=== PATIENT | female | born 1940 | race Two or more races ===

== ENCOUNTER 2017-11-11 09:38 | Outpatient (CLI) | payer OTHER ==
[~2017-11-11 09:38] MED LIST: MILLIPRED DP5 M1 PO; TRAMADOL HCL50 MG PO
== END 2017-11-11 09:46 | disposition home or self-care (01) ==
LOC: SONOGRAMA 09:38
DX: E04.1 Nontoxic single thyroid nodule (principal)

== ENCOUNTER 2018-06-23 09:47 | Outpatient (CLI) | payer OTHER | END 2018-06-23 09:57 | disposition home or self-care (01) | LOC: RAD 09:47 | DX: I11.9 Hypertensive heart disease without heart failure (principal); R06.02 Shortness of breath ==

== ENCOUNTER 2018-09-18 09:42 | Outpatient (CLI) | payer OTHER | END 2018-09-18 09:48 | disposition home or self-care (01) | LOC: MAMO-SONO 09:42 | DX: Z12.31 Encounter for screening mammogram for malignant neoplasm of breast (principal); Z87.898 Personal history of other specified conditions; C50.911 Malignant neoplasm of unspecified site of right female breast; C50.912 Malignant neoplasm of unspecified site of left female breast; N63.10 Unspecified lump in the right breast, unspecified quadrant; N63.20 Unspecified lump in the left breast, unspecified quadrant ==

== ENCOUNTER 2019-01-06 13:59 | Outpatient (CLI) | payer OTHER | END 2019-01-06 14:13 | disposition home or self-care (01) | LOC: NUCLEAR 13:59 | DX: M81.0 Age-related osteoporosis without current pathological fracture (principal); M15.0 Primary generalized (osteo)arthritis ==

== ENCOUNTER 2019-02-22 08:49 | Emergency (ER) | payer OTHER ==
[~2019-02-22] VITALS: Ht 160 cm; Wt 60.8 kg
[2019-02-22] MEDS ORDERED: SYNTHROID75 MCG (09:29)
[2019-02-22] MEDS ORDERED: FLEXERIL (09:29)
[2019-02-22] MEDS ORDERED: VITAMIN D350000 UNIT (09:30)
[2019-02-22] MEDS ORDERED: TOPROL XL25 MG (09:30)
[2019-02-22] MEDS ORDERED: CELECOXIB100 MG PO (13:06)
[2019-02-22] MEDS ORDERED: KEFLEX500 MG PO (13:06)
== END 2019-02-22 13:15 | disposition home or self-care (01) ==
LOC: ER 08:49
DX: L03.115 Cellulitis of right lower limb (principal); M79.671 Pain in right foot

== ENCOUNTER 2019-03-11 06:53 | Outpatient (CLI) | payer OTHER ==
[~2019-03-11 06:53] MED LIST changes: +CELECOXIB100 MG PO; +FLEXERIL; +KEFLEX500 MG PO; +SYNTHROID75 MCG; +TOPROL XL25 MG; +VITAMIN D350000 UNIT
== END 2019-03-11 06:59 | disposition home or self-care (01) ==
LOC: LAB 06:53
DX: E03.8 Other specified hypothyroidism (principal); M81.0 Age-related osteoporosis without current pathological fracture; Z80.0 Family history of malignant neoplasm of digestive organs; E06.3 Autoimmune thyroiditis; D50.8 Other iron deficiency anemias; D51.8 Other vitamin B12 deficiency anemias; I10 Essential (primary) hypertension; D51.1 Vitamin B12 deficiency anemia due to selective vitamin B12 malabsorption with proteinuria; D51.0 Vitamin B12 deficiency anemia due to intrinsic factor deficiency

== ENCOUNTER 2019-10-28 07:20 | Outpatient (CLI) | payer OTHER | END 2019-10-28 07:28 | disposition home or self-care (01) | LOC: LAB 07:20 | PROVIDERS: ATTEND Internal Medicine Hematology & Oncology | DX: D50.8 Other iron deficiency anemias (principal); M81.0 Age-related osteoporosis without current pathological fracture; E03.8 Other specified hypothyroidism; D51.8 Other vitamin B12 deficiency anemias; R97.0 Elevated carcinoembryonic antigen [CEA]; I10 Essential (primary) hypertension; Z80.0 Family history of malignant neoplasm of digestive organs ==

== ENCOUNTER 2020-02-07 08:05 | Outpatient (CLI) | payer OTHER | END 2020-02-07 08:09 | disposition home or self-care (01) | LOC: RAD 08:05 | PROVIDERS: ATTEND Internal Medicine Geriatric Medicine | DX: I11.9 Hypertensive heart disease without heart failure (principal); R06.02 Shortness of breath ==

== ENCOUNTER → 2020-03-24 | Outpatient (CLI) | payer OTHER | END | disposition home or self-care (01) | LOC: OFIC 805 12:45 | PROVIDERS: ATTEND Otolaryngology Otology & Neurotology | DX: J34.89 Other specified disorders of nose and nasal sinuses (principal); J30.89 Other allergic rhinitis; L29.8 Other pruritus; H61.21 Impacted cerumen, right ear ==

== ENCOUNTER 2020-04-26 09:48 | Outpatient (CLI) | payer OTHER | END 2020-04-26 11:20 | disposition home or self-care (01) | LOC: OFIC 805 09:48 | PROVIDERS: ATTEND Otolaryngology Otology & Neurotology | DX: J30.89 Other allergic rhinitis (principal); J34.89 Other specified disorders of nose and nasal sinuses; L29.8 Other pruritus ==

== ENCOUNTER → 2020-05-29 | Outpatient (CLI) | payer OTHER | END | disposition home or self-care (01) | LOC: OFIC 805 05-05 14:35 | PROVIDERS: ATTEND Otolaryngology Otology & Neurotology | DX: R09.81 Nasal congestion (principal); J30.89 Other allergic rhinitis; J34.89 Other specified disorders of nose and nasal sinuses ==

== ENCOUNTER → 2020-07-04 | Outpatient (CLI) | payer OTHER | END | disposition home or self-care (01) | LOC: MAMO-SONO 11:05 | PROVIDERS: ATTEND Internal Medicine Geriatric Medicine | DX: Z12.31 Encounter for screening mammogram for malignant neoplasm of breast (principal); N60.11 Diffuse cystic mastopathy of right breast; N64.4 Mastodynia; N60.12 Diffuse cystic mastopathy of left breast ==

== ENCOUNTER 2021-02-01 12:43 | Outpatient (CLI) | payer OTHER | END 2021-02-01 12:54 | disposition home or self-care (01) | LOC: NUCLEAR 12:43 | PROVIDERS: ATTEND Internal Medicine Hematology & Oncology | DX: M81.0 Age-related osteoporosis without current pathological fracture (principal); Z80.0 Family history of malignant neoplasm of digestive organs; E06.3 Autoimmune thyroiditis ==

== ENCOUNTER 2021-10-18 08:36 | Emergency (ER) | payer OTHER ==
[~2021-10-18] VITALS: Ht 165.1 cm; Wt 61.2 kg
== END 2021-10-18 09:48 | disposition home or self-care (01) ==
LOC: ER 08:36
DX: M25.512 Pain in left shoulder (principal); I10 Essential (primary) hypertension; Z88.6 Allergy status to analgesic agent; M19.90 Unspecified osteoarthritis, unspecified site

== ENCOUNTER 2022-06-04 07:56 | Outpatient (CLI) | payer OTHER | END 2022-06-04 07:58 | disposition home or self-care (01) | LOC: NUCLEAR 07:56 | PROVIDERS: ATTEND Internal Medicine Hematology & Oncology | DX: M81.0 Age-related osteoporosis without current pathological fracture (principal); Z80.0 Family history of malignant neoplasm of digestive organs; E06.3 Autoimmune thyroiditis; D51.3 Other dietary vitamin B12 deficiency anemia; E78.2 Mixed hyperlipidemia; Z88.6 Allergy status to analgesic agent; Z91.018 Allergy to other foods ==

== ENCOUNTER 2022-07-15 08:46 | Outpatient (CLI) | payer OTHER | END 2022-07-15 08:47 | disposition home or self-care (01) | LOC: NUCLEAR 08:46 | PROVIDERS: ATTEND Internal Medicine Geriatric Medicine | DX: I11.9 Hypertensive heart disease without heart failure (principal) ==

== ENCOUNTER 2022-10-25 08:29 | Outpatient (CLI) | payer OTHER | END 2022-10-25 08:30 | disposition home or self-care (01) | LOC: NUCLEAR 08:29 | PROVIDERS: ATTEND Internal Medicine Geriatric Medicine | DX: I74.3 Embolism and thrombosis of arteries of the lower extremities (principal) ==

== ENCOUNTER 2023-03-04 10:05 | Outpatient (CLI) | payer OTHER | END 2023-03-04 10:12 | disposition home or self-care (01) | LOC: MAMO-SONO 10:05 | PROVIDERS: ATTEND Internal Medicine Hematology & Oncology | DX: Z12.31 Encounter for screening mammogram for malignant neoplasm of breast (principal); N63.0 Unspecified lump in unspecified breast; N64.4 Mastodynia ==

== ENCOUNTER 2023-03-07 10:50 | Outpatient (CLI) | payer OTHER | END 2023-03-07 10:59 | disposition home or self-care (01) | LOC: NUCLEAR 10:50 | PROVIDERS: ATTEND Internal Medicine Hematology & Oncology | DX: M81.0 Age-related osteoporosis without current pathological fracture (principal); Z80.0 Family history of malignant neoplasm of digestive organs; E06.3 Autoimmune thyroiditis; D51.3 Other dietary vitamin B12 deficiency anemia; E78.2 Mixed hyperlipidemia; I70.213 Atherosclerosis of native arteries of extremities with intermittent claudication, bilateral legs ==

== ENCOUNTER 2024-06-09 08:52 | Outpatient (CLI) | payer OTHER | END 2024-06-09 08:56 | disposition home or self-care (01) | LOC: MAMO-SONO 08:52 | PROVIDERS: ATTEND Internal Medicine Geriatric Medicine | DX: E04.2 Nontoxic multinodular goiter (principal); Z12.31 Encounter for screening mammogram for malignant neoplasm of breast; C50.919 Malignant neoplasm of unspecified site of unspecified female breast; N63.0 Unspecified lump in unspecified breast; N64.4 Mastodynia; N60.12 Diffuse cystic mastopathy of left breast; N60.11 Diffuse cystic mastopathy of right breast ==